=== PATIENT | female | born 1960 | race Caucasian/White ===

== ENCOUNTER → 2017-03-18 | Outpatient (CLI) | payer OTHER ==
[~2017-03-18] MED LIST: AMBIEN 10 MG TA10 MG PO; BENTYL 10 MG CA10 M1 PO; CARAFATE 1 GM TA1 G1 PO; CLEOCIN HCL150 MG PO; HALCION0.25 MG PO; HYDROXYZINE HCL50 MG PO; IMIPRAMINE HCL10 MG PO; ISOMETHEPT-DIC1 EACH PO; LEVOTHYROXIN0.112 M1 PO; LOPID600 MG PO; MOBIC7.5 MG PO; ONDANSETRON HCL4 M2 PO; OXYBUTYNIN 5 MG5 M2 PO; PRAVACHOL40 MG PO; PRILOSEC40 MG PO; SINGULAIR 10 MG10 M1 PO; XANAX 0.5 MG0.5 MG PO
== END ==
LOC: RAD 13:13
DX: Z12.31 Encounter for screening mammogram for malignant neoplasm of breast (principal)

== ENCOUNTER → 2017-03-25 | Outpatient (CLI) | payer OTHER | LOC: MRI 09:57 | DX: M51.37 Other intervertebral disc degeneration, lumbosacral region (principal); R15.9 Full incontinence of feces; R32 Unspecified urinary incontinence; M79.605 Pain in left leg; M79.604 Pain in right leg ==

== ENCOUNTER → 2018-05-09 | Outpatient (CLI) | payer OTHER | LOC: RAD 12:45 | DX: Z12.31 Encounter for screening mammogram for malignant neoplasm of breast (principal) ==

== ENCOUNTER → 2018-07-11 | Outpatient (CLI) | payer OTHER | LOC: CAT 07:44 | DX: D18.09 Hemangioma of other sites (principal); R22.2 Localized swelling, mass and lump, trunk ==